=== PATIENT | female | born 1980 | race Caucasian/White ===

== ENCOUNTER 2020-06-26 06:00 | Day surgery (SDC) | payer BC, OTHER ==
[2020-06-25 09:58] VITALS: BMI 21.9
[2020-06-26] MEDS ORDERED: LIDOCAINE HCL 1%, 10 MG/ML (20ML VIAL) ONE (13:49)
[2020-06-26] MEDS ORDERED: HEPARIN NA (PORCINE) 5,000 UNITS/ML 1ML VIAL ONE (13:50)
[2020-06-26] MEDS ORDERED: ACETAMINOPHEN 1000 MG/100 ML VIAL (NON FORMULARY) IVPB ONE (14:14)
--- NOTE | 2020-06-26 14:14 | HP ---
History & Physical Update - History History: No Change - Physical Physical: No Change - Assessment Assessment: No Change - Plan Plan: No Change
[2020-06-26] MEDS ORDERED: IBUPROFEN 800 MG/8 ML IJ IVPB SCH (14:15)
[2020-06-26] MEDS ORDERED: DEXTROSE 5%-0.45% SALINE 1,000 ML IV SCH (14:15)
[2020-06-26] MEDS ORDERED: DEXAMETHASONE SOD PHOSPHATE 4 MG/1 ML VIAL ONE (14:20)
[2020-06-26] MEDS ORDERED: SUCCINYLCHOLINE CHLORIDE 200 MG/10 ML SYRINGE ONE (14:20)
[2020-06-26] MEDS ORDERED: PROPOFOL 20 ML ONE (14:20)
[2020-06-26] MEDS ORDERED: LIDOCAINE HCL/PF 2% SDV 5ML VIAL ONE (14:20)
[2020-06-26] MEDS ORDERED: MIDAZOLAM HCL 2 MG/2 ML SINGLE DOSE VIAL ONE (14:21)
[2020-06-26] MEDS ORDERED: LIDOCAINE HCL 2% JELLY 10 ML CARTRIDGE ONE (14:35)
[2020-06-26] MEDS ORDERED: ceFAZolin SODIUM 1 GM VIAL IVPB ONE (14:35)
[2020-06-26] MEDS ORDERED: ceFAZolin SODIUM 1 GM VIAL ONE (14:37)
[2020-06-26] MEDS ORDERED: LIDOCAINE HCL 2% JELLY 10 ML CARTRIDGE TP ONE ×2 (14:42→14:54)
[2020-06-26] MEDS ORDERED: SODIUM BICARBONATE 8.4% 50 MEQ/50 ML DISP.SYRIN IV ONE (14:47)
[2020-06-26] MEDS ORDERED: LIDOCAINE HCL 1%, 10 MG/ML (20ML VIAL) INF ONE (14:47)
[2020-06-26] MEDS ORDERED: HEPARIN NA (PORCINE) 5,000 UNITS/ML 1ML VIAL SQ ONE (14:47)
[2020-06-26] MEDS ORDERED: KETOROLAC TROMETHAMINE 30 MG/1 ML VIAL ONE (14:59)
[2020-06-26] MEDS ORDERED: ACETAMINOPHEN INJECTION 100 ML IVPB ONE (15:20)
[2020-06-26 15:53] VITALS: TEMP 98
--- NOTE | 2020-06-26 16:04 | OP ---
DATE OF OPERATION: 06/26/2020 PREOPERATIVE DIAGNOSIS: Interstitial cystitis, urinary frequency. POSTOPERATIVE DIAGNOSIS: Interstitial cystitis, urinary frequency. PROCEDURE: Cystoscopy, hydrodistention, instillation of bladder medications. SURGEON: Nilson Calix MD ANESTHESIA: General. ANETHESIOLOGIST: Valeriy Velasquez MD IV ANTIBIOTICS: Two g of Ancef. ESTIMATED BLOOD LOSS: None. FINDINGS: Severe hyperemia throughout the bladder consistent with interstitial cystitis. No tumors or stones were seen. OPERATION: The patient was brought to the OR, placed on the table in the supine position, given general anesthesia and IV antibiotics and placed in the modified lithotomy position. Timeout was performed. The groin was prepped and draped sterilely. Lidocaine jelly was infused per urethra and held for 2 minutes. Cystoscopy was then performed. Both UOs were seen with clear efflux. No tumors or stones were seen. Of note, however, was severe hyperemia throughout the bladder consistent with interstitial cystitis. Hydrodistention was performed. The water was infused at a pressure of 16 mmHg and then held for 10 minutes. It was emptied, refilled again and upon emptying glomerulations were seen throughout the bladder mucosa, again consistent with interstitial cystitis. At the end of the hydrodistention a solution including heparin, bicarbonate, lidocaine and saline was left in the bladder. More lidocaine jelly was infused per urethra and the patient was woken up. NILSON RODRIGUEZ M.D. [id number]
[2020-06-26 18:08] VITALS: BP 118/67; PULSE 70
== END 2020-06-26 17:00 | disposition home or self-care (01) ==
LOC: JASU-SURG 06:00
PROVIDERS: ATTEND Urology
PROC: 0T7B8ZZ Dilation of Bladder, Via Natural or Artificial Opening Endoscopic (ICD-10-PCS; principal; 2020-06-26 15:00)
PROC: 3E0K8GC Introduction of Other Therapeutic Substance into Genitourinary Tract, Via Natural or Artificial Opening Endoscopic (ICD-10-PCS; 2020-06-26 15:00)
DX: N30.10 Interstitial cystitis (chronic) without hematuria (principal); R35.0 Frequency of micturition
CPT/HCPCS: 84703; 94760; J0131; J1644